=== PATIENT | male | born 1995 | race Caucasian/White ===

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

== ENCOUNTER 2017-03-30 20:57 | Emergency (ER) | payer OTHER ==
[~2017-03-30] VITALS: Ht 172.7 cm; Wt 104.7 kg
[~2017-03-30 20:57] MED LIST changes: +CYCL-319 PO
[2017-03-30 21:11] VITALS: Ht 172.7 cm; Wt 104.7 kg
[2017-03-30] MEDS ORDERED: KETOROLAC 30 MG INJ IV STA (22:51)
[2017-03-30] MEDS ORDERED: SOD CHLORIDE 0.9% 1,000 ML IV STA (22:51)
--- NOTE | 2017-03-30 23:13 | RADRPT ---
PROCEDURE: US Abdomen. CLINICAL INDICATION: abdominal pain TECHNIQUE: Multiple real-time images were acquired of the patient's right upper quadrant abdomen a nd retroperitoneum utilizing a high resolution transducer. COMPARISON: None FINDINGS: The liver demonstrates slightly increased echogenicity. The liver is normal in size and no focal so lid lesions are seen. The liver measures 17.4 cm in length. The portal vein is patent with normal di rection of flow. No intrahepatic biliary dilatation is seen. No gallstones are identified within the gallbladder. There is no pericholecystic fluid or gallbladd er wall thickening. The common bile duct measures 2 mm in maximal dimension. The pancreas was not seen due to overlying bowel gas. No free fluid is identified. The right kidney is normal in size, and demonstrate normal echogenicity and cortical thickness. The right kidney measures 11.5 cm in long dimension. There is no evidence of hydronephrosis. There are no kidney stones. RPTAT: AA IMPRESSION: Mild fatty infiltration of the liver. No evidence of gallstones. Pancreas not seen due to overlying bowel gas. .Suresh Delgadillo MD, MD Date Time Electronically viewed and signed by .Suresh Delgadillo MD, on 03/30/2017 23:13 .S/
--- NOTE | 2017-03-31 00:04 | RADRPT ---
PROCEDURE: XR Left Finger CLINICAL INDICATION: pain TECHNIQUE: AP, oblique and lateral views of the left third finger were obtained. COMPARISON: No prior studies are available for comparison. FINDINGS: Bone mineralization appears subjectively normal. No acute fracture or dislocation is identified. Sub tle scalloped lucency along the cortical surface of the distal radial aspect of the third proximal p halanx (seen only on the AP view) may represent a benign bone lesion such as a periosteal chondroma. There is mild soft tissue swelling overlying the proximal interphalangeal joint of the third digit. IMPRESSION: 1. No acute fracture or dislocation. 2. Questionable small scalloped lucency along the cortical surface of the distal radial aspect of th e third proximal phalanx (seen only on the AP view) may represent a benign bone lesion such as a per iosteal chondroma. If there is no history of trauma and pain persists, CT or MRI may provide further evaluation, as clinically indicated. 3. Mild soft tissue swelling overlying the proximal interphalangeal joint of the third digit. RPTAT: [facility] Physician Dragan Date Time Electronically viewed and signed by Physician Dragan on 03/31/2017 00:03 /
[2017-03-31 00:23] LABS: ALBUMIN/GLOBULIN RATIO 1.31; BILIRUBIN,INDIRECT 1.2 mg/dl (0-1.1); BILIRUBIN,TOTAL 1.2 mg/dl (0.2-1.3); CREATININE 0.83 mg/dl (0.61-1.24); POTASSIUM 3.6 mmol/L (3.5-5.1); TOTAL PROTEIN 8.8 g/dl (6.1-8.1)
[2017-03-31 00:25] LABS: BASOPHILS % 0.2 % (0.0-2.0); EOSINOPHILS # 0.1 10^3/ul (0.0-0.5); EOSINOPHILS % 1.5 % (0.0-7.0); HEMATOCRIT 47.6 % (42.0-52.0); HEMOGLOBIN 16.6 g/dl (14.0-18.0); LYMPHOCYTES # 1.3 10^3/ul (0.8-2.9); MEAN CORPUSCULAR HEMOGLOBIN 30.9 pg (29.0-33.0); MEAN CORPUSCULAR HGB CONC 34.9 g/dl (32.0-37.0); MEAN CORPUSCULAR VOLUME 88.5 fl (72.0-104.0); MONOCYTE # 0.6 10^3/ul (0.3-0.9); MONOCYTES % 6.8 % (0.0-13.0); NEUTROPHIL # 6.5 10^3/ul (1.6-7.5); PLATELET COUNT 266 10^3/UL (140-415); RED BLOOD COUNT 5.38 10^6/ul (4.70-6.10); RED CELL DISTRIBUTION WIDTH 11.5 % (11.5-14.5); WHITE BLOOD COUNT 8.6 10^3/ul (4.8-10.8)
[2017-03-31] MEDS ORDERED: FAMO-96 PO (01:15)
[2017-03-31] MEDS ORDERED: HYDR-906 PO (01:15)
[2017-03-31 01:21] LABS: ADD UMIC NO; UR ASCORBIC ACID NEGATIVE (NEGATIVE); UR BILIRUBIN (Dip) NEGATIVE (NEGATIVE); UR BLOOD (Dip) NEGATIVE (NEGATIVE); UR CLARITY CLEAR (CLEAR); UR COLOR YELLOW (YELLOW); UR GLUCOSE (Dip) NEGATIVE (NEGATIVE); UR KETONES (Dip) NEGATIVE (NEGATIVE); UR LEUKOCYTE ESTERASE (Dip) NEGATIVE Leu/ul (NEGATIVE); UR NITRITE (Dip) NEGATIVE (NEGATIVE); UR SPECIFIC GRAVITY (Dip) 1.033 (1.003-1.030); UR TOTAL PROTEIN (Dip) NEGATIVE (NEGATIVE); UR UROBILINOGEN (Dip) 2+ mg/dL (NEGATIVE)
[2017-03-31 01:31] VITALS: BP 144/84; PULSE 71; RESP 20; TEMP 98
--- NOTE | 2017-03-31 02:00 | ERD ---
ER Documentation Chief Complaint Chief Complaint RUQ abd pain x 2 days HPI 20-year-old male complaining of right upper quadrant pain 2 days. Patient describes pain in the right abdomen comes and goes. Patient's been diagnosed with gastritis in the past and states the pain feels similar. Denies chest pain or shortness of breath. Denies pleuritic pain. No vomiting. Had one episode of diarrhea. Has not taken medications for symptoms. Denies any medical problems. NKDA. Surgical history: Denies. ROS All systems reviewed and are negative except as per history of present illness. Medications Home Meds Active Scripts Hydrocodone/Acetaminophen ([place] 5-325 Tablet) 1 Each Tablet, 1 TAB PO Q6H Y for PAIN, #7 TAB Prov:PILY CHIANG PA-C 03/31/17 Famotidine* (Pepcid*) 20 Mg Tablet, 20 MG PO BID for 4 Days, #30 TAB Prov:PILY CHIANG PA-C 03/31/17 Ibuprofen* (Motrin*) 600 Mg Tab, 600 MG PO Q6H Y for PAIN AND OR ELEVATED TEMP, #30 TAB Prov:ALAN HARTMAN NP 12/28/16 Cyclobenzaprine Hcl* (Cyclobenzaprine Hcl*) 10 Mg Tablet, 10 MG PO Q8 Y for MUSCLE SPASMS, #6015 TAB Prov:ALAN HARTMAN NP 12/28/16 Ranitidine Hcl* (Zantac*) 150 Mg Tablet, 150 MG PO BID Y for EPIGASTRIC PAIN, # 30 TAB Prov:ASHIA HILARIO 07/17/16 Sucralfate* (Carafate*) 1 Gm Tab, 1 GM PO QID, #60 TAB Prov:ASHIA HILARIO 07/17/16 Ibuprofen* (Motrin*) 600 Mg Tab, 600 MG PO Q6H Y for PAIN AND OR ELEVATED TEMP, #30 TAB Prov:ALAN HARTMAN NP 07/10/16 Reported Medications [none] Unknown Strength No Conflict Check 07/09/16 Allergies Allergies: Coded Allergies: No Known Allergy (Unverified , 09/28/11) PMhx/Soc History of Surgery: No Anesthesia Reaction: No Hx Neurological Disorder: Yes (anxiety) Hx Respiratory Disorders: Yes (ASTHMA) Hx Cardiac Disorders: No Hx Psychiatric Problems: No Hx Miscellaneous Medical Probl: No Hx Alcohol Use: No Hx Substance Use: No Hx Tobacco Use: No Smoking Status: Light tobacco smoker Physical Exam Vitals Vital Signs Date Time Temp Pulse Resp B/P Pulse Ox O2 Delivery O2 Flow Rate FiO2 03/31/17 01:31 98.0 71 20 144/84 100 Room Air 03/30/17 21:11 98.5 72 20 155/95 99 Physical Exam GENERAL: The patient is well-appearing, well-nourished, in no acute distress CHEST: Clear to auscultation bilaterally. There are no rales, wheezes or rhonchi. HEART: Regular rate and rhythm. No murmurs, clicks, rubs or gallops. No S3 or S4. ABDOMEN: Normoactive bowel sounds. Mild tenderness palpation the right upper quadrant with no rebound tenderness. No organomegaly. No rigidity. BACK: No midline or flank tenderness. Result Diagram: 03/30/17225003/30/172250 Results 24 hrs Laboratory Tests Test 03/30/17 22:51 03/30/17 23:34 White Blood Count 8.610^3/ul Red Blood Count 5.3810^6/ul Hemoglobin 16.6g/dl Hematocrit 47.6% Mean Corpuscular Volume 88.5fl Mean Corpuscular Hemoglobin 30.9pg Mean Corpuscular Hemoglobin Concent 34.9g/dl Red Cell Distribution Width 11.5% Platelet Count 54011^3/UL Mean Platelet Volume 10.0fl Neutrophils % 76.0% Lymphocytes % 15.0% Monocytes % 6.8% Eosinophils % 1.5% Basophils % 0.2% Nucleated Red Blood Cells % 0.0/100WBC Neutrophils # 6.510^3/ul Lymphocytes # 1.310^3/ul Monocytes # 0.610^3/ul Eosinophils # 0.110^3/ul Basophils # 0.010^3/ul Nucleated Red Blood Cells # 0.010^3/ul Sodium Level 143mmol/L Potassium Level 3.6mmol/L Chloride Level 101mmol/L Carbon Dioxide Level 28mmol/L Anion Gap 18 Blood Urea Nitrogen 14mg/dl Creatinine 0.83mg/dl Glucose Level 97mg/dl Calcium Level 10.0mg/dl Total Bilirubin 1.2mg/dl Direct Bilirubin 0.00mg/dl Indirect Bilirubin 1.2mg/dl Aspartate Amino Transf (AST/SGOT) 32IU/L Alanine Aminotransferase (ALT/SGPT) 62IU/L Alkaline Phosphatase 133IU/L Total Protein 8.8g/dl Albumin 5.0g/dl Globulin 3.80g/dl Albumin/Globulin Ratio 1.31 Lipase 43U/L Urine Color YELLOW Urine Clarity CLEAR Urine pH 5.0 Urine Specific [place] 1.033 Urine Ketones NEGATIVEmg/dL Urine Nitrite NEGATIVEmg/dL Urine Bilirubin NEGATIVEmg/dL Urine Urobilinogen 2+mg/dL Urine Leukocyte Esterase NEGATIVELeu/ul Urine Hemoglobin NEGATIVEmg/dL Urine Glucose NEGATIVEmg/dL Urine Total Protein NEGATIVEmg/dl Current Medications Medications (Trade) Dose Ordered Sig/Dea Route PRN Reason Start Time Stop Time Status Last Admin Dose Admin Sodium Chloride (NS) 1,000 ml @ 1,000 mls/hr Q1H STAT IV 03/30/17 22:51 03/30/17 23:50 DC 03/30/17 23:56 Ketorolac Tromethamine (Toradol) 30 mg ONCE STAT IV 03/30/17 22:51 03/30/17 22:55 DC 03/30/17 23:56 Procedures/MDM DIAGNOSTIC IMAGING REPORT Patient: LEAH SUN : 1995 Age: 21 Sex: M MR #: [id number] DOS: 03/30/17 2251 Ordering MD: DONG CHIANG PA-C Location: [facility] Room/Bed: PROCEDURE: XR Left Finger CLINICAL INDICATION: pain TECHNIQUE: AP, oblique and lateral views of the left third finger were obtained. COMPARISON: No prior studies are available for comparison. FINDINGS: Bone mineralization appears subjectively normal. No acute fracture or dislocation is identified. Subtle scalloped lucency along the cortical surface of the distal radial aspect of the third proximal phalanx (seen only on the AP view) may represent a benign bone lesion such as a periosteal chondroma. There is mild soft tissue swelling overlying the proximal interphalangeal joint of the third digit. IMPRESSION: 1. No acute fracture or dislocation. 2. Questionable small scalloped lucency along the cortical surface of the distal radial aspect of the third proximal phalanx (seen only on the AP view) may represent a benign bone lesion such as a periosteal chondroma. If there is no history of trauma and pain persists, CT or MRI may provide further evaluation , as clinically indicated. 3. Mild soft tissue swelling overlying the proximal interphalangeal joint of the third digit. DIAGNOSTIC IMAGING REPORT Patient: LEAH SUN : 1995 Age: 21 Sex: M MR #: [id number] DOS: 03/30/17 2251 Ordering MD: DONG CHIANG PA-C Location: [facility] Room/Bed: PROCEDURE: US Abdomen. CLINICAL INDICATION: abdominal pain TECHNIQUE: Multiple real-time images were acquired of the patient's right upper quadrant abdomen and retroperitoneum utilizing a high resolution transducer. COMPARISON: None FINDINGS: The liver demonstrates slightly increased echogenicity. The liver is normal in size and no focal solid lesions are seen. The liver measures 17.4 cm in length. The portal vein is patent with normal direction of flow. No intrahepatic biliary dilatation is seen. No gallstones are identified within the gallbladder. There is no pericholecystic fluid or gallbladder wall thickening. The common bile duct measures 2 mm in maximal dimension. The pancreas was not seen due to overlying bowel gas. No free fluid is identified. The right kidney is normal in size, and demonstrate normal echogenicity and cortical thickness. The right kidney measures 11.5 cm in long dimension. There is no evidence of hydronephrosis. There are no kidney stones. RPTAT: AA IMPRESSION: Mild fatty infiltration of the liver. No evidence of gallstones. Pancreas not seen due to overlying bowel gas. ER Course: 1L NS and toradol given in ED MDM: 21-year-old male complaining of abdominal pain. I have low suspicion for choledocholithiasis, cholecystitis, cholangitis. I have low suspicion for appendicitis or bowel obstruction. Patient does not have tenderness with percussion and is able to jump up and down without pain. I have low suspicion for bowel obstruction as patient is passing normal stool. Patient's pain is likely associated with gastritis. Patient is discharged with pain medication and antacid medication. Patient is told if symptoms change or worsen to return to the ER. All questions answered at discharge. Departure Diagnosis: Primary Impression: Abdominal pain Condition: Stable Patient Instructions: Abdominal Pain Referrals: [facility] YOU HAVE RECEIVED A MEDICAL SCREENING EXAM AND THE RESULTS INDICATE THAT YOU DO NOT HAVE A CONDITION THAT REQUIRES URGENT TREATMENT IN THE EMERGENCY DEPARTMENT. FURTHER EVALUATION AND TREATMENT OF YOUR CONDITION CAN WAIT UNTIL YOU ARE SEEN IN YOUR DOCTORS OFFICE WITHIN THE NEXT 1-2 DAYS. IT IS YOUR RESPONSIBILITY TO MAKE AN APPOINTMENT FOR FOLOW-UP CARE. IF YOU HAVE A PRIMARY DOCTOR --you should call your primary doctor and schedule an appointment IF YOU DO NOT HAVE A PRIMARY DOCTOR YOU CAN CALL OUR PHYSICIAN REFERRAL HOTLINE AT IF YOU CAN NOT AFFORD TO SEE A PHYSICIAN YOU CAN CHOSE FROM THE FOLLOWING [facility] [address] [facility]. [facility] [address] [facility] [facility] [address] [facility] [facility] [address] [facility] [facility] [address] [facility]. [facility] [address] Additional Instructions: FOLLOW UP WITH YOUR PRIMARY CARE PHYSICIAN TOMORROW.Return to this facility if you are not improving as expected. PILY CHIANG PA-C Mar 31, 2017 02:00
== END 2017-03-31 01:32 | disposition home or self-care (01) ==
LOC: FTE 20:57
DX: R10.11 Right upper quadrant pain (principal); J45.909 Unspecified asthma, uncomplicated; F17.210 Nicotine dependence, cigarettes, uncomplicated
CPT/HCPCS: 36415; 73140; 76705; 80053; 81003; 83690; 85025; 96374; J1885; J7030; Z7502

== ENCOUNTER 2017-10-06 03:14 | Emergency (ER) | END 2017-10-06 05:45 | disposition home or self-care (01) ==

== ENCOUNTER 2018-01-16 17:37 | Emergency (ER) | END 2018-01-16 20:42 | disposition home or self-care (01) ==

== ENCOUNTER 2018-05-05 16:23 | Emergency (ER) | payer OTHER ==
[~2018-05-05] VITALS: Ht 167.6 cm; Wt 105.6 kg
[~2018-05-05 16:23] MED LIST changes: -CYCL-319 PO; +CYCL10TA7 PO; +HYDR-4011 PO; +ONDA8TAB14 PO; +PANT40TA3 PO; +POLY17PO6 PO; +RANI150T35 PO; -RANI150T9 PO; -SUCR1TAB56 PO
[2018-05-05 16:27] VITALS: Ht 167.6 cm; Wt 105.6 kg
[2018-05-05] MEDS ORDERED: LIDOCAINE/MYLANTA 40 ML BTL PO ONE (17:00)
[2018-05-05] MEDS ORDERED: UDMYL PO (17:00)
[2018-05-05] MEDS ORDERED: ONDA4TAB14 PO (17:00)
--- NOTE | 2018-05-05 17:05 | ERD ---
ER Documentation Chief Complaint Chief Complaint Upset stomach and abdominal pain after a restaurant meal HPI 22 year old male presents for epigastric abdominal pain times 1 day. States th at he was at a restaurant yesterday when he had the pain went to the bathroom and states that the abdominal pain improved. He states that he had 5 out of 10 pain. He states that there is no pain radiation. Describes the pain as sharp. He has no abdominal pain currently. States that the bowel movement he had was soft. There is no diarrhea noted. There is no blood or dark stools noted. He denies any fevers or chills. Denies chest pain or shortness of breath. He admits to nausea however there is no vomiting. Review of record shows that patient had gallbladder ultrasound which was negative in the past. He also had a CT abdomen and pelvis in the past which was also unremarkable. ROS All systems reviewed and are negative except as per history of present illness. Medications Home Meds Active Scripts Ondansetron (Ondansetron Odt) 4 Mg Tab.rapdis, 4 MG PO Q6H PRN for NAUSEA AND/OR VOMITING, #10 TAB Prov:ANNIE GALINDO DO 05/05/18 Magaldrate/Simethicone* (Mag-Al Plus Suspension*) 30 Ml Oral.susp, 30 ML PO Q6H PRN for GASTROINTESTINAL UPSET, #1 BOTTLE Prov:ANNIE GALINDO DO 05/05/18 Ondansetron (Ondansetron Odt) 8 Mg Tab.rapdis, 8 MG PO Q6H PRN for NAUSEA AND/OR VOMITING, #6 TAB Prov:RADHA MILLIGAN MD 01/16/18 Pantoprazole* (Protonix*) 40 Mg Tablet.dr, 40 MG PO DAILY, #20 TAB Prov:ANNIE GIBSON MD 10/06/17 Polyethylene Glycol* (Miralax*) 17 Gm Powd.pack, 17 GM PO DAILY, #7 Prov:ANNIE GIBSON MD 10/06/17 Ibuprofen* (Motrin*) 600 Mg Tab, 600 MG PO Q6H PRN for PAIN AND OR ELEVATED TEMP, #20 TAB Prov:ANNIE GIBSON MD 10/06/17 Hydrocodone/Acetaminophen ([place] 5-325 Tablet) 1 Each Tablet, 1 TAB PO Q6H PRN for PAIN, #7 TAB Prov:PILY CHIANG PA-C 03/31/17 Cyclobenzaprine Hcl* (Cyclobenzaprine Hcl*) 10 Mg Tablet, 10 MG PO Q8 PRN for MUSCLE SPASMS, #6015 TAB Prov:ALAN HARTMAN NP 12/28/16 Ranitidine Hcl* (Zantac*) 150 Mg Tablet, 150 MG PO BID PRN for EPIGASTRIC PAIN, #30 TAB Prov:ASHIA HILARIO 07/17/16 Allergies Allergies: Coded Allergies: No Known Allergy (Unverified , 01/16/18) PMhx/Soc History of Surgery: No Anesthesia Reaction: No Hx Neurological Disorder: Yes (anxiety) Hx Respiratory Disorders: Yes (ASTHMA) Hx Cardiac Disorders: Yes (high blood pressure never medicated) Hx Psychiatric Problems: No Hx Miscellaneous Medical Probl: No Hx Alcohol Use: No Hx Substance Use: No Hx Tobacco Use: No Physical Exam Vitals Vital Signs Date Temp Pulse Resp B/P (MAP) Pulse Ox O2 O2 Flow FiO2 Time Delivery Rate 05/05/18 98.6 63 20 185/90 97 16:27 (121) Physical Exam Const: No acute distress Resp: Clear to auscultation bilaterally Cardio: Regular rate and rhythm, no murmurs Abd: Soft, non tender, non distended. Normal bowel sounds, no McBurney's point tenderness, no Cavazos sign, no rebound or guarding noted. Skin: No petechiae or rashes Back: No midline or flank tenderness Ext: No cyanosis, or edema Neur: Awake and alert Psych: Normal Mood and Affect Results 24 hrs Current Medications Medications Dose Sig/Dae Start Time Status Last (Trade) Ordered Route PRN Stop Time Admin Dose Reason Admin 40 ml ONCE ONCE 05/05/18 DC Miscellaneous PO 17:00 Medication 05/05/18 (Gi Cocktail 17:01 (2)) Procedures/MDM Medical Decision Making: Differential diagnosis includes but not limited to acute gastroenteritis, acute gastritis, appendicitis, cholecystitis, pancreatitis. Patient appeared well on physical exam. Nontoxic appearing. Abdominal examination was benign. There is low suspicion for an acute abdomen at this point. Patient stated that the abdominal pain is resolved prior to come to the ED. Therefore labs were felt to be unnecessary. Imaging also felt to be unnecessary. Patient likely has an acute gastritis. ED course: Patient was given GI cocktail. Symptoms improved with treatment. Prescription(s): Patient given prescription for Mylanta and Zofran. Patient advised to follow up with PCP in 1-2 days. Patient advised to return to ED for new or worsening symptoms. Patient stable on discharge from the ED. Disclaimer: Inadvertent spelling and grammatical errors are likely due to EHR/dictation software use and do not reflect on the overall quality of patient care. Also, please note that the electronic time recorded on this note does not necessarily reflect the actual time of the patient encounter. Departure Diagnosis: Primary Impression: Abdominal pain Abdominal location: epigastric Qualified Codes: R10.13 - Epigastric pain Condition: Fair Patient Instructions: Abdominal Pain, Gastritis (Adult) Referrals: [facility] YOU HAVE RECEIVED A MEDICAL SCREENING EXAM AND THE RESULTS INDICATE THAT YOU DO NOT HAVE A CONDITION THAT REQUIRES URGENT TREATMENT IN THE EMERGENCY DEPARTMENT. FURTHER EVALUATION AND TREATMENT OF YOUR CONDITION CAN WAIT UNTIL YOU ARE SEEN IN YOUR DOCTORS OFFICE WITHIN THE NEXT 1-2 DAYS. IT IS YOUR RESPONSIBILITY TO MAKE AN APPOINTMENT FOR FOLOW-UP CARE. IF YOU HAVE A PRIMARY DOCTOR --you should call your primary doctor and schedule an appointment IF YOU DO NOT HAVE A PRIMARY DOCTOR YOU CAN CALL OUR PHYSICIAN REFERRAL HOTLINE AT IF YOU CAN NOT AFFORD TO SEE A PHYSICIAN YOU CAN CHOSE FROM THE FOLLOWING [facility] [address] [facility]. [facility] [address] [facility]. [place] [address] [facility]. [facility] [address] [facility] [facility] [address] [facility]. [facility]. [address] Additional Instructions: Call your primary care doctor TOMORROW for an appointment during the next 1-2 days.See the doctor sooner or return here if your condition worsens before your appointment time. ANNIE GALINDO DO May 05, 2018 17:05
== END 2018-05-05 17:26 | disposition home or self-care (01) ==
LOC: FTE 16:23
DX: R10.13 Epigastric pain (principal); J45.909 Unspecified asthma, uncomplicated
CPT/HCPCS: Z7502; Z7610; 99283

== ENCOUNTER 2018-05-18 00:17 | Emergency (ER) | payer OTHER ==
[~2018-05-18] VITALS: Ht 177.8 cm; Wt 105.2 kg
[~2018-05-18 00:17] MED LIST changes: +ONDA4TAB14 PO; +UDMYL PO
[2018-05-18 00:22] VITALS: Ht 177.8 cm; Wt 105.2 kg
--- NOTE | 2018-05-18 04:30 | ERD ---
ER Documentation Chief Complaint Chief Complaint L hand injury s/p punching glass window. good CMS HPI 22-year-old male presents here to emergency department for complaints of left hand pain after punching a glass window today. Describes the pain as throbbing pain, 6/10 scale, not better or worse with anything. Denies any open wounds. Has superficial puncture wounds with some small pieces of glass in it. Patient denies taking any medications to help with symptoms ROS All systems reviewed and are negative except as per history of present illness. Medications Home Meds Active Scripts Ondansetron (Ondansetron Odt) 4 Mg Tab.rapdis, 4 MG PO Q6H PRN for NAUSEA AND/OR VOMITING, #10 TAB Prov:ANNIE GALINDO DO 05/05/18 Magaldrate/Simethicone* (Mag-Al Plus Suspension*) 30 Ml Oral.susp, 30 ML PO Q6H PRN for GASTROINTESTINAL UPSET, #1 BOTTLE Prov:ANNIE GALINDO DO 05/05/18 Ondansetron (Ondansetron Odt) 8 Mg Tab.rapdis, 8 MG PO Q6H PRN for NAUSEA AND/OR VOMITING, #6 TAB Prov:RADHA MILLIGAN MD 01/16/18 Pantoprazole* (Protonix*) 40 Mg Tablet.dr, 40 MG PO DAILY, #20 TAB Prov:ANNIE GIBSON MD 10/06/17 Polyethylene Glycol* (Miralax*) 17 Gm Powd.pack, 17 GM PO DAILY, #7 Prov:ANNIE GIBSON MD 10/06/17 Ibuprofen* (Motrin*) 600 Mg Tab, 600 MG PO Q6H PRN for PAIN AND OR ELEVATED TEMP, #20 TAB Prov:ANNIE GIBSON MD 10/06/17 Hydrocodone/Acetaminophen ([place] 5-325 Tablet) 1 Each Tablet, 1 TAB PO Q6H PRN for PAIN, #7 TAB Prov:PILY CHIANG PA-C 03/31/17 Cyclobenzaprine Hcl* (Cyclobenzaprine Hcl*) 10 Mg Tablet, 10 MG PO Q8 PRN for MUSCLE SPASMS, #6015 TAB Prov:ALAN HARTMAN NP 12/28/16 Ranitidine Hcl* (Zantac*) 150 Mg Tablet, 150 MG PO BID PRN for EPIGASTRIC PAIN, #30 TAB Prov:ASHIA HILARIO 07/17/16 Allergies Allergies: Coded Allergies: No Known Allergy (Unverified , 01/16/18) PMhx/Soc History of Surgery: No Anesthesia Reaction: No Hx Neurological Disorder: Yes (anxiety) Hx Respiratory Disorders: Yes (ASTHMA) Hx Cardiac Disorders: Yes (high blood pressure never medicated) Hx Psychiatric Problems: No Hx Miscellaneous Medical Probl: Yes (Fatty liver) Hx Alcohol Use: Yes (social) Hx Substance Use: Yes (social) Hx Tobacco Use: No FmHx Family History: No diabetes, No coronary disease, No other Physical Exam Vitals Vital Signs Date Temp Pulse Resp B/P (MAP) Pulse Ox O2 O2 Flow FiO2 Time Delivery Rate 05/18/18 97.8 69 16 142/100 98 00:22 (114) Physical Exam GENERAL: The patient is well developed and appropriate for usual state of health, in no apparent distress. CHEST: Clear to auscultation bilaterally. There are no rales, wheezes or rhonchi. HEART: Regular rate and rhythm. No murmurs, clicks, rubs or gallops. No S3 or S4. ABDOMEN: Soft, nontender and nondistended. Good bowel sounds. No rebound or guarding. No gross peritonitis. No gross organomegaly or masses. No Cavazos sign or McBurney point tenderness. BACK: No midline or flank tenderness. EXTREMITIES: Able to do full range of motion of the joints of the left hand without any restriction. Equal pulses bilaterally. There is no peripheral clubbing, cyanosis or edema. No focal swelling or erythema. Full range of motion. Grossly neurovascularly intact. NEURO: Alert and oriented. Cranial nerves 2-12 intact. Motor strength in all 4 extremities with 5/5 strength. Sensation grossly intact. Normal speech and gait. SKIN: Noted abrasion/puncture wound superficial wounds on the left hand. There is no apparent rash or petechia. The skin is warm and dry. HEMATOLOGIC AND LYMPHATIC: There is no evidence of excessive bruising or lymphedema. No gross cervical, axillary, or inguinal lymphadenopathy. Results 24 hrs PROCEDURE: Left hand series CLINICAL INDICATION: Pain. Trauma. TECHNIQUE: AP, lateral and oblique images were obtained of the left hand COMPARISON: None FINDINGS: No evidence of acute fracture or dislocation. Bony mineralization is normal. No focal bony blastic or lytic lesions. No erosions. No foreign bodies. IMPRESSION: No evidence acute fractures dislocations or foreign bodies. RPTAT:AAJJ Physician Daryn Date Time Electronically viewed and signed by Physician Daryn on 05/18/2018 05:20 BM/ CC: ALAN HARTMAN NP [phone] Procedures/MDM Medical Decision Making: Patient's pain is most likely consistent with a hand contusion. There is no suspicion for neurovascular compromise. Patient has intact sensation and circulation of the affected extremity. There is low suspicion for septic arthritis. Patient does not have any fever. Radiology exams of the affected area does not show any fracture or dislocation. Disposition: Home. Patient is given prescription for ibuprofen for pain, [place] for severe pain. Patient was advised to elevate the affected area and apply ice on affected area. Patient was advised that if symptoms are worse, numbness, tingling, high fever, unable to move joint, worsening symptoms, to return to emergency department immediately. Otherwise, patient is advised to follow up with the primary care doctor in 5-7 days for reevaluation of symptoms. Disclaimer: Inadvertent spelling and grammatical errors are likely due to EHR/dictation software use and do not reflect on the overall quality of patient care. Also, please note that the electronic time recorded on this note does not necessarily reflect the actual time of the patient encounter. Departure Diagnosis: Primary Impression: Hand contusion Encounter type: initial encounter Laterality: left Qualified Codes: S60.222A - Contusion of left hand, initial encounter Condition: Stable Patient Instructions: Contusion, Hand Additional Instructions: Patient is given prescription for ibuprofen for pain, [place] for severe pain. Patient was advised to elevate the affected area and apply ice on affected area. Patient was advised that if symptoms are worse, numbness, tingling, high fever, unable to move joint, worsening symptoms, to return to emergency department immediately. Otherwise, patient is advised to follow up with the primary care doctor in 5-7 days for reevaluation of symptoms. ALAN HARTMAN NP May 18, 2018 04:30
[2018-05-18] MEDS ORDERED: IBUP-1542 PO (05:28)
[2018-05-18] MEDS ORDERED: HYDR-4011 PO (05:28)
[2018-05-18 05:51] VITALS: BP 122/65; PULSE 75; RESP 20
== END 2018-05-18 05:48 | disposition home or self-care (01) ==
LOC: FTE 00:17
DX: S60.222A Contusion of left hand, initial encounter (principal); J45.909 Unspecified asthma, uncomplicated; W25.XXXA Contact with sharp glass, initial encounter; Y92.9 Unspecified place or not applicable
CPT/HCPCS: 73130; Z7502

== ENCOUNTER 2018-12-23 02:43 | Emergency (ER) | payer OTHER ==
[~2018-12-23] VITALS: Ht 175.3 cm; Wt 108.0 kg
[2018-12-23 02:47] VITALS: Ht 175.3 cm; Wt 108.0 kg
[2018-12-23 04:43] VITALS: BP 138/76; PULSE 58; RESP 16
== END 2018-12-23 04:44 | disposition home or self-care (01) ==
LOC: E/R 02:43
DX: R10.11 Right upper quadrant pain (principal); J45.909 Unspecified asthma, uncomplicated
CPT/HCPCS: 76705; 80053; 83690; 85025; Z7502